=== PATIENT | female | born 1995 | race Caucasian/White ===

== ENCOUNTER 2019-03-14 09:52 | Inpatient (IN) | payer OTHER, SELFPAY ==
[2019-03-14 10:31] LABS: Absolute Lymphocytes (CBC) 1.4 K/uL (0.7-4.9); Basophils % 0.4 % (0-1.3); Hematocrit 32.8 % (36.0-45.0); Lymphocytes % 17.1 % (15.3-44.8); MPV 8.5 fL (7.6-11.3); RBC Red Blood Cell Count 3.92 M/uL (3.86-4.86)
[2019-03-14 10:34] LABS: Urine Appearance CLEAR; Urine Bilirubin NEGATIVE (NEG); Urine Blood TRACE (NEG); Urine Color YELLOW; Urine Glucose NEGATIVE (NEG); Urine Protein 2+ (NEG); Urine Specific Gravity <=1.005 (1.005-1.030)
[2019-03-14 10:39] LABS: Protime INR 0.93
[2019-03-14 10:44] LABS: Urine Bacteria NONE SEEN /HPF (<20); Urine Culture Reflex Order NOT NEEDED; Urine RBC <5 /HPF (NONE SEEN)
[2019-03-14 10:54] LABS: ALT/SGPT 23 U/L (12-78); AST/SGOT 19 U/L (15-37); Albumin 2.1 g/dL (3.4-5.0); Alkaline Phosphatase 143 U/L (45-117); BUN Blood Urea Nitrogen 5 mg/dL (7-18); Bicarbonate 27 mmol/L (21-32); Bilirubin Direct 0.1 mg/dL (0-0.2); Bilirubin Total 0.2 mg/dL (0.2-1.0); Glucose Level 94 mg/dL (74-106); Protein, Total 6.3 g/dL (6.4-8.2); Sodium Level 139 mmol/L (136-145); Uric Acid 3.9 mg/dL (2.6-6.0)
[2019-03-14] MEDS ORDERED: OXYTOCIN/LR 20 UNIT/1,000 ML BAG IV ONE (12:21)
[2019-03-14] MEDS ORDERED: BUPIVACAINE 0.25% PF 30 ML VIAL ONE (12:26)
[2019-03-14] MEDS ORDERED: PROMETHAZINE 25 MG/ML VIAL IM PRN ×3 (12:31→12:54)
[2019-03-14] MEDS ORDERED: Ringers Lactate 1,000 ML IV PRN (12:31)
[2019-03-14] MEDS ORDERED: CARBOPROST TROME 250 MCG/ML IM PRN (12:31)
[2019-03-14] MEDS ORDERED: Ringers Lactate 1,000 ML IV SCH (13:00)
[2019-03-14] MEDS ORDERED: OXYTOCIN/LR 20 UNIT/1,000 ML BAG IV SCH (13:00)
--- NOTE | 2019-03-14 13:17 | PN ---
Subjective: Patient is 2.5 almost 3 cm. The baby is well applied. Rupture of membranes, clear flui d. Last blood pressure is 158/99. We will probably start the magnesium sulfate fairly soon. Full l abor talk given. Probably will request epidural, but if possible she will wait until she is 5 cm and the baby is a little bit lower. Doing well at this point. CASI/SIRENA Voice ID: [id number] Report ID: [id number]
[2019-03-14] MEDS ORDERED: HYDRALAZINE HCL 20 MG/ML VIAL IV ONE (13:24)
--- NOTE | 2019-03-14 13:32 | PREOPHP ---
Date of Admission: 03/14/2019 Subjective: Roberta Diop is a 24-year-old primigravida, at 37 weeks and 4 days. Reports fee ling slightly disoriented. Her blood pressure in the office was 138/84, +2 protein dipstick, only ve ry mild edema, brisk reflexes, sent to Labor and Delivery, and mildly elevated blood pressures and pr oteinuria, all confirmed. The laboratory exam shows that the patient does not have HELLP, but does h ave preeclampsia. Options discussed. Patient is 2 cm, 50%, -1 station. Vertex well applied. We celestin ve decided to proceed with labor induction, magnesium sulfate, discussed with the patient. As soon a s we will start the IV and Pitocin and she establishes the labor pattern, we will rupture membranes a nd begin magnesium sulfate at that point. This is a female fetus and she knows that female is usuall y do better than males, but she knows if the baby has any trouble, then after it is delivered, annie rician will take over. Full admission talk. CASI/SIRENA Voice ID: [id number]
[2019-03-14 13:59] VITALS: BMI 34.0
[2019-03-14] MEDS: BUTORPHANOL 1 MG/ML INJ IV PRN ×2 (15:10→18:43)
[2019-03-14] MEDS ORDERED: HYDRALAZINE HCL 20 MG/ML VIAL ONE (19:52)
--- NOTE | 2019-03-14 20:07 | PN ---
3 cm, 60% effaced, beth regularly. Baby looked good. With 5 mg of Apresoline IV, her blood p ressures have moderated into the 155 range systolic, whereas they were 170s. Patient has had 1 dose of Stadol and seems to be doing quite well at this point. We will continue to gradually increase the Pitocin stimulation. CASI/SIRENA Voice ID: [id number] Report ID: [id number]
[2019-03-14] MEDS ORDERED: ROPIVACAINE HCL 100 ML IV ONE (21:04)
[2019-03-14 21:20] LABS: RPR (Rapid Plasma Reagin) NON-REACT (NON-REACT)
--- NOTE | 2019-03-14 22:55 | PN ---
Patient is on 20 milliunits of Pitocin, beth regularly. She has had 1 dose of Stadol and Phen ergan. We will give her another dose of Stadol, but not give the Phenergan at this point. She has a dvanced now to 3.5 cm, thinned out the cervix quite well to 70% and the baby is now at about -1, almo st 0 station. She is starting to make some progress, when she gets to about 5 cm and she says she th inks she will take an epidural, but has not decided for sure yet. Once we get to 5 I think we will s tart making more rapid progress. CASI/SIRENA Voice ID: [id number] Report ID: [id number]
[2019-03-15] MEDS ORDERED: CARBOPROST TROME 250 MCG/ML IM ONE (00:58)
[2019-03-15] MEDS ORDERED: LIDOCAINE 1% MPF 30 ML VIAL ONE (00:58)
[2019-03-15] MEDS ORDERED: METHYLERGONOVINE 0.2MG/ML AMP IM ONE (00:58)
[2019-03-15] MEDS ORDERED: ACETAMINOPHEN 500 MG TAB ONE (01:23)
[2019-03-15] MEDS ORDERED: Ringers Lactate 1,000 ML IV ONE (03:09)
[2019-03-15] MEDS ORDERED: OXYTOCIN 10 UNIT/ML ML IV ONE (03:09)
[2019-03-15] MEDS ORDERED: ACETAMINOPHEN 500 MG TAB PO PRN (03:25)
[2019-03-15] MEDS ORDERED: BISACODYL 10 MG RECTAL SUPP RECT PRN (03:25)
[2019-03-15] MEDS ORDERED: Oxycodone HCl/Acetaminophen 1 TAB TAB PO PRN ×2 (03:25)
[2019-03-15] MEDS ORDERED: DOCUSATE NA/SENNA CONC 1 TAB PO PRN (03:25)
[2019-03-15] MEDS ORDERED: DIPHENHYDRAMINE 25 MG TAB/CAP PO PRN (03:25)
--- NOTE | 2019-03-15 03:27 | PN ---
Patient is now is 7-8 cm, +1 station. There is decreased [id number] variability, but she says she has been feeling the baby move. I have put on a scalp electrode, it has not been connected yet to th e monitor. We will see if we have better variability on the external monitor and whether the decreas ed [id number] is secondary to baby sleeping or the 2 doses of Stadol that the patient previou sly had. No significant decelerations, but we will get a better tracing once the internal monitor is connected which looking at the screen now it appears to be and we are getting good [id number]. CASI/SIRENA Voice ID: [id number] Report ID: [id number]
--- NOTE | 2019-03-15 03:45 | PN ---
The patient has now complete pushing. Baby has come down well since the pushing has begun. Anticipa te delivery relatively soon. CASI/SIRENA Voice ID: [id number] Report ID: [id number]
--- NOTE | 2019-03-15 03:51 | OP ---
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 Laboratory evaluation exam showed pat ient did not have HELLP syndrome. Sent to Labor and Delivery and started on Pitocin induction as wel l as magnesium sulfate. During the labor, she had to be given Apresoline on 3 occasions to bring her blood pressure under 165. Epidural anesthesia was employed and gave good effect. Second stage of l abor was approximately 30 minutes. Patient delivered spontaneously a 6-pound 7-ounce female, Apgars 9 and 9. Small first-degree laceration repaired with 2-0 chromic. Local infiltration for supplement al analgesia. Schultze delivery of the placenta, which was inspected and noted to be intact and norm al. Less than 300 cc blood loss. Patient is Rh negative, has received RhoGAM during her . Immune to rubella and negative beta strep screen. Tolerated all procedures well. Final Diagnoses: Intrauterine gestation, 37 weeks 3 to 4 days, preeclampsia, labor induction, vagina l delivery, epidural anesthesia. Magnesium sulfate administration. RhoGAM pending. CASI/SIRENA Voice ID: [id number] Report ID: [id number]
[2019-03-15] MEDS ORDERED: OXYTOCIN/LR 20 UNIT/1,000 ML BAG IV SCH (04:00)
--- NOTE | 2019-03-15 04:11 | PN ---
Patient is now +2 station about 9 cm, feeling pressure. We are making much better progress now and I think will begin start pushing within the next 30 to 45 minutes if she proceeds according to antonio peralta. CASI/SIRENA Voice ID: [id number] Report ID: [id number]
[2019-03-15] MEDS: PHENOBARBITAL 32.4 MG TABLET PO SCH ×2 (05:45→12:00)
--- NOTE | 2019-03-15 08:39 | PN ---
Patient is now 4-1/2 to possibly 5, 90% effaced, vertex, 0 station. FHT still looks quite good. Eva mary is requesting epidural at this point. She is being hydrated. Dr. Rodriguez is finishing up a chandler an. As soon as he becomes available, we will do the epidural. I think the baby is still posterior. Pelvic rocks suggested. CASI/SIRENA Voice ID: [id number] Report ID: [id number]
[2019-03-15] MEDS: IBUPROFEN 200 MG TAB PO PRN ×2 (09:26→20:35)
[2019-03-15] MEDS: LABETALOL HCL 100 MG TAB PO SCH (21:28)
--- NOTE | 2019-03-16 01:58 | DS ---
History: A 24-year-old primigravida, at 37 weeks 4 days, sudden development of preeclampsia. Sent t o Labor and Delivery where labor induction was started. During the labor, she received epidural anes thesia, at the time of delivery local anesthesia for a small first-degree laceration. Delivery of a 6-pound 7-ounce female, Apgars 9 and 9. Schultze delivery of the placenta less than 300 mL blood los s. Patient is Rh negative, and is being qualified for RhoGAM. During the labor, blood pressures wer e elevated and the patient was given Apresoline 3 times to bring blood pressure in control. Since th e delivery, blood pressures have moderated. There is still some systolics in the 150, but some as lo w as 119. The patient will be observed until tomorrow. Will be dismissed by Dr. Llanos at that t don. I have written a prescription for phenobarbital 60 mg to be taken every 6 hours for 4 additiona l days. The patient is to have her blood pressure taken over the weekend. If any problems, she is t o call Labor and Delivery and she will inform my office on Mondays what her blood pressures are. Sin ce she lives in [place] we will try to save her trip over, but if her blood pressures are elevated, I will see her in the office early next week. No post epidural problems. Final Diagnoses: Intrauterine gestation, 37 weeks 4 days, preeclampsia, labor induction, vaginal del leana. Epidural anesthesia. RhoGAM pending. CASI/SIRENA Voice ID: [id number] Report ID: [id number]
[2019-03-16] MEDS: LABETALOL HCL 100 MG TAB PO SCH (09:02)
[2019-03-16] MEDS: IBUPROFEN 200 MG TAB PO PRN (11:00)
[2019-03-16 11:37] VITALS: BP 127/81; TEMP 97.9
--- OUTSIDE RECORDS SUMMARY | 2019-03-19 00:46 | XMS REPORT ---
:1995 [facility] Address [address] [place] [address] Dr. Bustillo [address] [place] [id number] Care Team Providers Name Role Phone Unavailable Unavailable Unavailable Problems This patient has no known problems. Allergies, Adverse Reactions, Alerts This patient has no known allergies or adverse reactions. Medications This patient has no known medications.
[2019-03-19 04:07] LABS: HBsAG Nonreactive (Nonreactive)
== END 2019-03-16 12:30 | disposition home or self-care (01) | DRG 807 ==
LOC: RAD 09:52 → 2ND-WC 12:21
PROVIDERS: ADMIT Specialist; ATTEND Specialist
PROC: 10907ZC Drainage of Amniotic Fluid, Therapeutic from Products of Conception, Via Natural or Artificial Opening (ICD-10-PCS; 2019-03-14)
PROC: 3E033VJ Introduction of Other Hormone into Peripheral Vein, Percutaneous Approach (ICD-10-PCS; 2019-03-14)
PROC: 10E0XZZ Delivery of Products of Conception, External Approach (ICD-10-PCS; principal; 2019-03-15)
PROC: 0HQ9XZZ Repair Perineum Skin, External Approach (ICD-10-PCS; 2019-03-15)
PROC: 3E0234Z Introduction of Serum, Toxoid and Vaccine into Muscle, Percutaneous Approach (ICD-10-PCS; 2019-03-15)
DX: O70.0 First degree perineal laceration during delivery (principal); Z37.0 Single live birth; O14.94 Unspecified pre-eclampsia, complicating childbirth; Z3A.37 37 weeks gestation of pregnancy
CPT/HCPCS: 36415; 80048; 80076; 81001; 83735; 84550; 85025; 85461; 85610; 85730; 86592; 86850; 86901; 87340; J0360; J0595; J2210; J2590; J2790; J2795; J7120